=== PATIENT | male | born 1990 | race Caucasian/White ===

== ENCOUNTER → 2018-04-25 | Outpatient (CLI) | payer OTHER ==
--- NOTE | 2018-04-25 09:23 | KCIC ---
EXAM:[place] view of skull/orbits DATE: 04/25/2018 12:00 AM CLINICAL HISTORY: Pre-MRI COMPARISON: None available. FINDINGS: Single view of the skull is negative for retained radiopaque foreign body projected at the orbits or visualized calvarium. No definite fracture. Limited profile regional paranasal sinuses negative for air/fluid level. IMPRESSION: No retained radiopaque foreign body. Electronically signed by: Chandler Powell MD (04/25/2018 9:20 AM) [id number]
--- NOTE | 2018-04-25 10:34 | KCIC ---
EXAM: MRI Left KNEE DATE: 04/25/2018 8:00 AM CLINICAL INDICATION: Left knee pain COMPARISON: None. TECHNIQUE: Multiplanar, multisequence MRI of the left knee was performed without contrast. FINDINGS: Small left knee effusion. Small Townsend's cyst, although edema is seen tracking inferiorly along the lower leg. The ACL and PCL are intact. There is no abnormal translation of the tibia relative to the femur. The MCL, fibular collateral ligament, biceps femoris and IT band are intact. The popliteus is normal in signal and morphology. The extensor mechanism is also intact. Borderline lateral patellar tracking. 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 Medial meniscus: Intact Lateral meniscus: Intact Edema within Hoffa's fat pad is seen. No definite full-thickness cartilage defect. No fracture or AVN. IMPRESSION: 1. Small Townsend's cyst with edema tracking inferiorly along the lower leg suggesting recent partial rupture. 2. Hoffa's fat pad edema at the level of the intercondylar notch, nonspecific but may be seen with Hoffa's impingement or prior arthroscopy. 3. 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 Electronically signed by: Chandler Powell MD (04/25/2018 10:31 AM) [id number]
== END | disposition home or self-care (01) ==
LOC: KCIC MRI 08:36
PROVIDERS: ATTEND Nurse Practitioner Family
DX: Z01.00 Encounter for examination of eyes and vision without abnormal findings (principal); M71.22 Synovial cyst of popliteal space [Baker], left knee; R60.0 Localized edema; M25.462 Effusion, left knee
CPT/HCPCS: 70030; 73721

== ENCOUNTER → 2019-08-06 | Outpatient (CLI) | payer OTHER ==
[~2019-08-06] MED LIST: OXYC1TAB15 PO
== END | disposition home or self-care (01) ==
LOC: LAB 10:18
PROVIDERS: ATTEND Surgery
DX: Z11.59 Encounter for screening for other viral diseases (principal)
CPT/HCPCS: 87071; 87075; U0003

== ENCOUNTER 2019-08-07 09:21 | Day surgery (SDC) | payer OTHER ==
[~2019-08-07] VITALS: Ht 190.5 cm; Wt 84.0 kg
[~2019-08-07 09:21] MED LIST changes: +ACETAMINOPHEN 500 MG TABLET PO ONE; +HYDROmorphone 2 MG/ML VIAL IV PRN; +IV RINGERS,LACTATED 1000ML 1,000 ML IV SCH; +LIDOCAINE 1% PF 2 ML VIAL. ID PRN; +LIDOCAINE 2% PF 5 ML VIAL. ONE; +MORPHINE SULFATE 2 MG/ML VIAL. IV PRN; +ONDANSETRON PF 4 MG/2 ML VIAL. IV PRN; -OXYC1TAB15 PO; +PROCHLORPERAZINE 10 MG/2 ML VIAL. IV PRN; +PROPOFOL 10 MG/ML (20ML) VIAL. IV ONE; +fentaNYL PF VIAL 100 MCG/2 ML VIAL IV PRN; +fentaNYL PF VIAL 100 MCG/2 ML VIAL ONE
[2019-08-07] MEDS ORDERED: BUPIVACAINE-EPI 0.5%-1:200000 MPF 30 ML VIAL. ONE (10:03)
[2019-08-07] MEDS ORDERED: DEXAMETHASONE SOD PHOS 4 MG/ML VIAL ONE (10:28)
[2019-08-07] MEDS ORDERED: ONDANSETRON PF 4 MG/2 ML VIAL. ONE (10:28)
[2019-08-07] MEDS ORDERED: SEVOFLURANE 16 TO 30 MINUTES. IH ONE (10:28)
--- NOTE | 2019-08-07 10:44 | PDOC4 ---
Operative Note Operative Note Date: 2019 at 1041 Preoperative diagnosis: Perirectal abscess Postoperative diagnosis: Same Procedure: Incision and drainage perirectal abscess Specimen: Cultures Surgeon: Damian Dictation: Patient is a 29-year-old male has a perirectal abscess on the left side causing a lot of pain and discomfort. Procedure of incision and drainage of perirectal abscess was explained to the patient detail risk-benefit were also discussed including bleeding infection alternatives to the procedure also discussed with the patient who seemed to understand and gave both verbal and written consent to have the procedure performed. Patient was taken to the operating room placed in supine position general anesthesia was initiated once patient was sleeping intubated he was placed in low lithotomy position and his perineum was prepped and draped usual sterile fashion using Betadine scrub and solution. Area around the abscess was injected with quarter percent Marcaine with epinephrine incision made with 15 blade scalpel purulent material was expressed this was cultured the wound was then irrigated with copious amounts normal saline and then packed with quarter inch iodoform new gauze and dressed with 4 x 4's. Patient was awakened and extubated in operating room taken to recovery in stable condition all sponge instrument needle counts listed as correct estimated blood loss 5 mL. VICTOR M MCLEAN MD Aug 07, 2019 10:44
--- NOTE | 2019-08-07 10:47 | DISCH ---
DISCHARGE INSTRUCTIONS Condition on Discharge Condition on Discharge: Stable Activity After Discharge Activity Instructions for Disc: No restrictions Diet after Discharge Diet after Discharge: Regular Wound Incision Care Other wound/incision instructi: Change packing daily Contacting the DRDali after DC Call your doctor for: If your condition worsens Follow-Up Follow up with: Dr. Mclean in 2 weeks VICTOR M MCLEAN MD Aug 07, 2019 10:47
[2019-08-07] MEDS ORDERED: OXYC1TAB15 PO (10:52)
[2019-08-07] MEDS ORDERED: oxyCODONE/APAP 5/325 1 TAB TABLET PO ONE (11:00)
[2019-08-07 11:18] VITALS: BP 134/75
== END 2019-08-07 12:00 | disposition home or self-care (01) ==
LOC: SURG 09:21
PROVIDERS: ATTEND Surgery
DX: K61.1 Rectal abscess (principal); Z87.891 Personal history of nicotine dependence
CPT/HCPCS: 46040; A7015; J0696; J1100; J2405; J2704; J3010; J3490; J0690; A4461